=== PATIENT | female | born 1950 ===

== ENCOUNTER → 2017-07-15 | Emergency (ER) | payer MEDICARE, BC ==
[~2017-07-15] VITALS: Ht 162.6 cm; Wt 109.1 kg
[~2017-07-15] MED LIST: ASPI-611 PO; CHOL100034 PO; DOCU-28 PO; HYDR-565 PO; IBUP200C5 PO; OMEP20CA10 PO
[2017-07-15 17:16] VITALS: BP 165/71
== END | disposition home or self-care (01) ==
LOC: ER 14:23
DX: Z46.6 Encounter for fitting and adjustment of urinary device (principal); G89.29 Other chronic pain; Z85.41 Personal history of malignant neoplasm of cervix uteri; Z90.710 Acquired absence of both cervix and uterus; Z79.82 Long term (current) use of aspirin
CPT/HCPCS: 51702; 99284; A4315

== ENCOUNTER 2017-09-07 20:42 | Emergency (ER) | payer MEDICARE, BC ==
[~2017-09-07] VITALS: Ht 162.6 cm; Wt 109.0 kg
[2017-09-07] MEDS ORDERED: LORazepam 2 mg/ml vial IV ONE (21:10)
[2017-09-07 22:18] VITALS: BP 137/44
== END 2017-09-07 22:19 | disposition home or self-care (01) ==
LOC: ER 20:43
DX: R33.9 Retention of urine, unspecified (principal); G89.29 Other chronic pain; Z90.49 Acquired absence of other specified parts of digestive tract; Z90.710 Acquired absence of both cervix and uterus; Z79.82 Long term (current) use of aspirin
CPT/HCPCS: 51702; 99284; A4315